=== PATIENT | female | born 1965 | race Caucasian/White ===

== ENCOUNTER 2016-10-19 07:17 | Day surgery (SDC) | payer BC ==
[2016-10-18 11:22] VITALS: Ht 152.4 cm; Wt 69.0 kg
[~2016-10-19] VITALS: Ht 152.4 cm; Wt 69.0 kg
[2016-10-19] VITALS (14 sets, daily range): BP systolic 117–154; BP diastolic 80–94; PULSE 16–75; RESP 11–18
[~2016-10-19 07:17] MED LIST: CEFA500C PO; CHOL100062 PO; SEVOFLURANE 15 MIN ONE
[2016-10-19] MEDS ORDERED: LACTATED RINGER'S 1,000 ML IV* ONE (07:30)
[2016-10-19] MEDS ORDERED: CEFAZOLIN 2 GM/50 ML (PMX) 50 ML IVPB SCH (08:30)
[2016-10-19] MEDS ORDERED: LIDOCAINE 1%/EPI 30 ML INJ ONE (09:13)
[2016-10-19] MEDS ORDERED: BUPIVACAINE 0.25% (MPF) 30 ML INJ ONE (09:14)
[2016-10-19] MEDS ORDERED: GENTAMICIN 80 MG INJ ONE (09:14)
[2016-10-19] MEDS ORDERED: MUPIROCIN 2% 15 GM CR ONE (09:14)
[2016-10-19] MEDS ORDERED: POLYMYXIN/BACITRACIN 1L IRRIG ONE (09:14)
[2016-10-19] MEDS ORDERED: MIDAZOLAM 1 MG/ML 2 ML INJ ONE (09:56)
[2016-10-19] MEDS ORDERED: FENTAnyl 50 MCG/ML VIAL ONE ×2 (09:56→10:33)
[2016-10-19] MEDS ORDERED: DIPHENHYDRAMINE 50 MG INJ IV PRN (10:00)
[2016-10-19] MEDS ORDERED: ONDANSETRON 4 MG INJ IV PRN (10:00)
[2016-10-19] MEDS ORDERED: MEPERIDINE 25 MG INJ IV PRN (10:00)
[2016-10-19] MEDS ORDERED: METOCLOPRAMIDE 10 MG INJ IV PRN (10:00)
[2016-10-19] MEDS ORDERED: CEFAZOLIN 1 GM INJ ONE (12:14)
[2016-10-19] MEDS ORDERED: LIDOCAINE 2% (SDV) 5 ML INJ ONE (12:14)
[2016-10-19] MEDS ORDERED: PROPOFOL 20 ML ONE (12:14)
[2016-10-19] MEDS ORDERED: ONDANSETRON 4 MG INJ ONE (12:15)
[2016-10-19] MEDS ORDERED: OXYCODONE/ACETAMINOPHEN (5/325) TAB PO PRN (12:30)
[2016-10-19] MEDS ORDERED: KETOROLAC 30 MG INJ ONE (12:58)
[2016-10-19] MEDS: FENTAnyl 50 MCG/ML VIAL IV PRN ×2 (13:07→13:13)
--- NOTE | 2016-10-19 13:42 | OPR ---
DATE OF OPERATION: 10/19/2016 PREOPERATIVE DIAGNOSIS: Breast asymmetry, post left mastectomy and reconstruction for left breast c arcinoma, larger right breast with ptosis. POSTOPERATIVE DIAGNOSIS: Breast asymmetry. post left mastectomy and reconstruction for left breast carcinoma, larger right breast with ptosis. OPERATION PERFORMED: Right breast reduction using Cook pattern mastopexy and inferior pedicle techn ique for symmetry. SURGEON: Rylee Gr M.D. GLOBAL RISK MANAGEMENT DIRECTOR: None. ANESTHESIA: General laryngeal mask airway. ANESTHESIOLOGIST: Nahid Hernandez MD Local anesthetic infiltration for postoperative pain control 60 mL of 0.5% lidocaine, 0.125% Marcai ne and 1:200,000 epinephrine solution. ESTIMATED BLOOD LOSS: 10 mL. DRAINS: None. DRESSING: Mastisol, Bactroban cream, dry sterile dressing, Tegaderm, ABD pad and mammary support. SPECIMENS: Right breast tissue (110 gram). OPERATIVE PROCEDURE: The patient received 2 grams of intravenous Ancef as preoperative antibiotic. Also with the patient in sitting position in the holding area, markings were made for the planned p rocedure. In the operating room with the patient in supine position, following adequate monitoring and induction of adequate level of general anesthesia using laryngeal mask airway by Dr. Hernandez, ane sthesiologist, the chest was prepped and draped in the usual sterile fashion. The operation was begun by the epithelialization of the inferior pedicle. Following routine prep an d drape, the lateral and medial flaps were raised on both sides of keyhole pattern. At this time, t he excess lateral and superior central portions of the breast tissue were excised. Hemostasis was c arefully checked and assured throughout the procedure using electrocoagulation. Operative area was irrigated using adequate amount of local anesthetic solution. Following assurance of adequate hemos tasis, adequate amount of local anesthetic solution was injected at the base and periphery of operat mitch area in order to provide postoperative pain control. Closure was then followed using interrupte d and continuous stitches of 3-0, 2-0 and 4-0 Monocryl. Repair was found to be satisfactory upon it s completion. Nipple areolar complex and the flaps were 100% viable at the completion of the proced ure. Size and symmetry was found to be perfectly satisfactory according to the planned procedure. Dressing was applied followed by mammary support. The patient tolerated this procedure very well an d left the operating room to the recovery room awake, stable and in comfortable, satisfactory and ex tubated condition. Dictated By: RYLEE LIRIANO/BETSY Conf#: [id number] DID#: [id number]
== END 2016-10-19 15:03 | disposition home or self-care (01) ==
LOC: SDS 07:17
PROVIDERS: ATTEND Plastic Surgery
DX: N65.1 Disproportion of reconstructed breast (principal); Z85.3 Personal history of malignant neoplasm of breast; Z92.21 Personal history of antineoplastic chemotherapy
CPT/HCPCS: 19316; 84703; 88307; J0690; J1580; J1885; J2250; J2405; J3010; Z7512; Z7610

== ENCOUNTER 2016-11-18 18:33 | Emergency (ER) | payer BC ==
[~2016-11-18] VITALS: Ht 157.5 cm; Wt 70.0 kg
[~2016-11-18 18:33] MED LIST changes: -SEVOFLURANE 15 MIN ONE
[2016-11-18 18:36] VITALS: Ht 157.5 cm; Wt 70.0 kg
[2016-11-18] MEDS ORDERED: SULF1TAB31 PO (19:19)
[2016-11-18] MEDS ORDERED: CEPH-443 PO (19:19)
[2016-11-18] MEDS ORDERED: ACET500C5 PO (19:19)
--- NOTE | 2016-11-18 19:39 | ERD ---
ER Documentation Chief Complaint Date/Time DATE: 11/18/16 TIME: 19:26 Chief Complaint had right breast surgery 1 month ago, states surgery site has "hole" HPI 51-year-old female complaining of pain and ulceration at the site of her right breast reconstruction surgery. Patient had surgery one month ago. She went to see her surgeon, was told that was normal. Patient reports fever at home yesterday and today, T-max 103. She took Tylenol for fever. Last dose was 4 hours ago. She has history of left breast cancer, status post left mastectomy. She is not currently on chemotherapy or radiation therapy. Denies any other medical history. ROS All systems reviewed and are negative except as per history of present illness. Medications Home Meds Active Scripts Sulfamethoxazole/Trimethoprim* (Bactrim Ds* Tablet) 1 Each Tablet, 1 TAB PO BID for 7 Days, #14 TAB Prov:GRANT KELLER [employer]ING [employer]NER 11/18/16 Cephalexin* (Keflex*) 500 Mg Capsule, 500 MG PO QID for 7 Days, CAP Prov:GRANT KELLER [employer]ING [employer]NER 11/18/16 Acetaminophen* (Tylophen*) 500 Mg Capsule, 1 CAP PO Q6H Y for PAIN AND OR ELEVATED TEMP, #20 CAP Prov:GRANT KELLER. G[employer]IZING [employer] RUNNER 11/18/16 Reported Medications Cefadroxil Hydrate* (Cefadroxil*) 500 Mg Capsule, 500 MG PO Q12, CAP AT 8 AM AND 8 PM 07/15/15 Cholecalciferol* (Vitamin D3*) 1,000 Unit Tablet, 1000 UNIT PO DAILY, TAB 07/15/15 Allergies Allergies: Coded Allergies: No Known Allergy (Unverified , 11/18/16) PMhx/Soc History of Surgery: Yes (LEFT MASTECTOMY,CHOLI., TUMMY TUCK) Anesthesia Reaction: No Hx Neurological Disorder: No Hx Respiratory Disorders: No Hx Cardiac Disorders: No Hx Psychiatric Problems: No Hx Miscellaneous Medical Probl: Yes (BREAST CA) Hx Alcohol Use: No Hx Substance Use: No Hx Tobacco Use: No Smoking Status: Never smoker Physical Exam Vitals Vital Signs Date Time Temp Pulse Resp B/P Pulse Ox O2 Delivery O2 Flow Rate FiO2 11/18/16 18:36 98.7 100 20 167/87 96 Physical Exam General impression: Well-developed, well-nourished. Alert, oriented, in no acute distress Head: Normocephalic, atraumatic. Eyes: PERRL, EOM normal. Sclerae are normal. Conjunctiva not injected. Respiration: Normal respiratory effort. Lungs clear to auscultate bilaterally. No wheezes, rales or rhonchi. Cardiovascular: Regular rate and rhythm. No murmurs or extra heart sounds. Breasts: Surgical scar noted on the right breast or in his vertically inferior to the nipple. Several small indentations was necrotic tissue along the surgical scar. A 1 cm sized open ulcer with necrotic tissue is noted at the base of the breast on the skin fold. There is surrounding tissue erythema, and tender to palpation. Neuro: Mental status normal, speech normal. ACCOUNTS RECEIVABLE PROCESSOR grossly intact. Skin: Normal turgor. No rash or lesions. Psych: Normal mood and affect. Procedures/MDM Well-appearing 51-year-old female presented to ED with ulceration of her right breast. There appears to be skin infection. She reports temperature 103 at home. Patient does not appear toxic. I doubt sepsis. I will prescribe her with Keflex and Bactrim DS. Patient also refer to amputation prevention center/ wound care center for follow-up wound care. Patient advised to return to ED if her fever is worse or she feels lethargic. The case was reviewed and discussed with Dr. Figueroa, who agrees with the plan of care including labs, treatment, and advanced imaging as appropriate. Departure Diagnosis: Primary Impression: Ulcer Condition: Stable Patient Instructions: Skin Ulcer, Simple Referrals: [facility] Additional Instructions: Please call [facility] for an appointment for wound care on Monday11/21/2016. GRANT KELLER NP Nov 18, 2016 19:36
== END 2016-11-18 19:47 | disposition home or self-care (01) ==
LOC: FTE 18:33
DX: N61.0 Mastitis without abscess (principal); N64.4 Mastodynia; Z85.3 Personal history of malignant neoplasm of breast
CPT/HCPCS: 99284

== ENCOUNTER 2018-09-21 06:56 | Day surgery (SDC) | payer BC ==
[~2018-09-21] VITALS: Ht 154.9 cm; Wt 69.7 kg
[~2018-09-21 06:56] MED LIST changes: +ACET500C5 PO; +CEPH-443 PO; +SULF1TAB31 PO
[2018-09-21 07:29] VITALS: Ht 154.9 cm; Wt 69.7 kg
[2018-09-21] MEDS ORDERED: NO MEDS (07:35)
[2018-09-21 08:00] VITALS: BP 143/85; PULSE 69; RESP 20
[2018-09-21] MEDS ORDERED: MIDAZOLAM 1 MG/ML 2 ML INJ ONE (09:21)
[2018-09-21] MEDS ORDERED: FENTAnyl 50 MCG/ML VIAL ONE (09:21)
[2018-09-21 09:24] VITALS: BP 159/78; PULSE 51; RESP 18
== END 2018-09-21 16:43 | disposition home or self-care (01) ==
LOC: GIL 06:56
PROVIDERS: ATTEND Internal Medicine Gastroenterology
DX: R19.4 Change in bowel habit (principal); K64.8 Other hemorrhoids
CPT/HCPCS: 88305; J2250; J3010